=== PATIENT | female | born 1990 | race African-American/Black ===

== ENCOUNTER → 2021-06-17 | Outpatient (CLI) | payer OTHER ==
--- NOTE | 2021-06-17 16:09 | REP ---
INDICATION: BPP DI DI TWINS. COMPARISON: None. TECHNIQUE: Real-time sonographic evaluation of gravid uterus performed. FINDINGS: There is a living intrauterine diamniotic dichorionic twin gestation. Estimated gestational age is reportedly 27 weeks 2 days EDC 09/14/2021. Cervix is closed and measures 3.0 cm in length. Fetus a: position transverse on the left. Placenta anterior and grade 1 with no previa. heart rate 134 beats per minute. Amniotic fluid within normal limits, largest pocket of fluid 3.5 cm. Biophysical profile score 8/8. SD ratio umbilical artery 2.8, normal 2.15-4.46. RI 0.65, normal 0.56-0.79. Fetus B: position transverse on the right. Placenta posterior and grade 1 with no previa. heart rate 153 beats per minute. Amniotic fluid within normal limits. Largest pocket of fluid 3.6 cm. Biophysical profile score 8/8. SD ratio umbilical artery 2.70, normal 2.15-4.46. RI 0.63, normal 0.56-0.79. IMPRESSION: Live intrauterine twin gestation. Biophysical profile score for each fetus is 8/8. <Electronically signed by Mk Swain > 06/17/21 [id number]
== END ==
LOC: M RAD 14:30
PROVIDERS: ATTEND Obstetrics & Gynecology
DX: Z36.4 Encounter for antenatal screening for fetal growth retardation (principal); O30.042 Twin pregnancy, dichorionic/diamniotic, second trimester; Z3A.27 27 weeks gestation of pregnancy

== ENCOUNTER → 2021-07-25 | Outpatient (CLI) | payer OTHER ==
--- NOTE | 2021-07-25 14:47 | REP ---
INDICATION: BPP. COMPARISON: 06/17/2021. TECHNIQUE: Real-time sonographic evaluation of the gravid uterus performed. FINDINGS: There is a living intrauterine twin gestation, diamniotic dichorionic. Estimated gestational age is32 weeks 5 days, EDC 09/14/2021. Closed cervical length is measured at 4.3 cm. Fetus a: Presentation: Cephalic, left Placenta anterior, grade 1, without evidence of placenta previa. heart rate is recorded at 138 beats per minute. Amniotic fluid is subjectively normal. Largest pocket of fluid 4.4 cm. Biophysical profile score 8/8. SD ratio umbilical artery 2.60, normal 1.81-3.80. RI 0.62, normal 0.49-0.74. Fetus b: Presentation: Transverse, head maternal right Placenta posterior, grade 1, without evidence of placenta previa. heart rate is recorded at 142 beats per minute. Amniotic fluid is subjectively normal. Largest pocket of fluid 3.7 cm. Biophysical profile score 8/8. SD ratio umbilical artery 3.33, normal 1.81-3.80. RI 0.70, normal 0.49-0.74. IMPRESSION: Viable intrauterine twin gestation as above. <Electronically signed by Mk Swain > 07/25/21 [id number]
== END ==
LOC: M WHC 12:45
PROVIDERS: ATTEND Registered Nurse
DX: O30.043 Twin pregnancy, dichorionic/diamniotic, third trimester (principal); Z3A.32 32 weeks gestation of pregnancy

== ENCOUNTER → 2021-07-29 | Outpatient (CLI) | payer OTHER ==
--- NOTE | 2021-07-29 14:03 | REP ---
INDICATION: BPP, DI/DI TWINS COMPARISON: 07/25/2021 TECHNIQUE: Transabdominal obstetrical ultrasound with color Doppler evaluation. FINDINGS: Examination demonstrates dichorionic diamniotic twin live intrauterine . Selected gestational age: 33 weeks 2 days with estimated date of delivery 09/14/2021. Cervix measures 3.3 cm in length and appears closed. TWIN A: Cephalic presentation towards left side of the uterus. heart rate equals 126 beats per minute. Placenta noted anterior and grade 1. Amniotic fluid volume deepest pocket: 3.4 cm Biophysical profile score: 8/8 Umbilical artery SD ratio: 3.16 TWIN B: Transverse presentation towards right side of the uterus. heart rate equals 144 beats per minute. Placenta noted posteriorly and grade 1. Amniotic fluid volume deepest pocket: 3.4 cm Biophysical profile score: 8/8 Umbilical artery SD ratio: 3.03 IMPRESSION: Twin gestation demonstrating normal biophysical profile scores. <Electronically signed by Alvarez Manley > 07/29/21 [id number]
== END ==
LOC: M WHC 08:34
PROVIDERS: ATTEND Obstetrics & Gynecology
DX: O30.043 Twin pregnancy, dichorionic/diamniotic, third trimester (principal); Z3A.33 33 weeks gestation of pregnancy

== ENCOUNTER → 2021-07-31 | Outpatient (CLI) | payer OTHER ==
--- NOTE | 2021-08-01 08:31 | REP ---
INDICATION: DI DI TWINS. COMPARISON: 07/29/2021. TECHNIQUE: Real-time sonographic evaluation of the gravid uterus performed. FINDINGS: Estimated gestational age is33 weeks 4 days, EDC 09/14/2021. Fetus a: Presentation: Cephalic, left Placenta posterior, fundal, grade 2, without evidence of placenta previa. heart rate is recorded at 153 beats per minute. Amniotic fluid is subjectively normal. Largest pocket of fluid surrounding fetus a 3.3 cm Biophysical profile score 8/8. SD ratio umbilical artery 3.55, normal 1.75-3.72. RI 0.72, normal 0.47-0.73. Fetus B: Presentation: Cephalic, right Placenta anterior, grade 2, without evidence of placenta previa. heart rate is recorded at 137 beats per minute. Amniotic fluid is subjectively normal. Largest pocket of fluid surrounding fetus B 3.6 cm Biophysical profile score 8/8. SD ratio umbilical artery 3.55, normal 1.75-3.72. RI 0.72, normal 0.47-0.73. IMPRESSION: Viable twin intrauterine gestation as above. <Electronically signed by Mk Swain > 08/01/21 [id number]
== END ==
LOC: M RAD 13:43
PROVIDERS: ATTEND Obstetrics & Gynecology
DX: O30.043 Twin pregnancy, dichorionic/diamniotic, third trimester (principal); Z3A.33 33 weeks gestation of pregnancy

== ENCOUNTER → 2021-08-05 | Outpatient (CLI) | payer OTHER ==
--- NOTE | 2021-08-05 13:07 | REP ---
INDICATION: 33+ WKS DI DI TWINS BPP; 33+ WKS DI TWINS COMPARISON: 07/31/2021 TECHNIQUE: Transabdominal obstetrical ultrasound with color Doppler evaluation. FINDINGS: Examination demonstrates advanced dichorionic diamniotic twin live intrauterine . Selected gestational age: 34 weeks 2 days with estimated date of delivery 09/14/2021. Cervix measures 3.9 cm in length and appears closed. TWIN A: Breech presentation towards left side of the uterus. heart rate equals 131 beats per minute. Placenta noted posterior/fundal and grade 2. Amniotic fluid volume deepest pocket: 5.3 cm Biophysical profile score: 8/8 Umbilical artery SD ratio: 2.94 TWIN B: Oblique towards right side of the uterus. heart rate equals 141 beats per minute. Placenta noted anteriorly and grade 2. Amniotic fluid volume deepest pocket: 6.1 cm Biophysical profile score: 8/8 Umbilical artery SD ratio: 3.82 (1.72-3.65) IMPRESSION: 1. Twin gestation demonstrating normal biophysical profile scores and amniotic fluid volumes. 2. Twin B umbilical artery SD ratio mildly elevated. <Electronically signed by Alvarez Manley > 08/05/21 [id number]
== END ==
LOC: M RAD 11:47
PROVIDERS: ATTEND Obstetrics & Gynecology
DX: O30.043 Twin pregnancy, dichorionic/diamniotic, third trimester (principal); Z3A.34 34 weeks gestation of pregnancy

== ENCOUNTER → 2021-08-07 | Outpatient (CLI) | payer OTHER ==
--- NOTE | 2021-08-07 13:38 | REP ---
INDICATION: EVAL RONDA; EVAL MCA; PREF 33+ WKS DI BPP COMPARISON: 08/05/2021 TECHNIQUE: Transabdominal obstetrical ultrasound with color Doppler evaluation. FINDINGS: Examination demonstrates advanced dichorionic diamniotic twin live intrauterine . Selected gestational age: 34 weeks 4 days with estimated date of delivery 09/14/2021. Cervix measures 3.4 cm in length and appears closed. TWIN A: Breech presentation towards left side of the uterus. heart rate equals 153 beats per minute. Placenta noted anteriorly and grade 1. Amniotic fluid volume deepest pocket: 4.0 cm Biophysical profile score: 8/8 Umbilical artery SD ratio: 4.51 (1.70-3.63) Middle cerebral artery SD ratio: 2.29 (RI 0.56). TWIN B: Cephalic presentation towards right side of the uterus. heart rate equals 125 beats per minute. Placenta noted right lateral and grade 1. Amniotic fluid volume deepest pocket: 2.9 cm Biophysical profile score: 8/8 Umbilical artery SD ratio: 4.81 (1.70-3.63) Middle cerebral artery SD ratio: 3.76 (RI 0.73). IMPRESSION: Both twins demonstrate normal biophysical profile score. Umbilical artery SD ratios are mildly elevated. <Electronically signed by Alvarez Manley > 08/07/21 [id number]
== END ==
LOC: M RAD 11:58
PROVIDERS: ATTEND Obstetrics & Gynecology
DX: O30.043 Twin pregnancy, dichorionic/diamniotic, third trimester (principal); Z3A.34 34 weeks gestation of pregnancy

== ENCOUNTER 2021-08-09 08:12 | Outpatient (CLI) | payer OTHER ==
[~2021-08-09] VITALS: Ht 160 cm; Wt 73.3 kg
[2021-08-09] MEDS ORDERED: CALC500C16 PO (08:42)
[2021-08-09] MEDS ORDERED: NOXI1TAB PO (08:42)
[2021-08-09] MEDS ORDERED: PRENTAB9 PO (08:42)
[2021-08-09] MEDS ORDERED: FOLI400T13 PO (08:42)
[2021-08-09] MEDS ORDERED: URSO300C3 PO (08:46)
[2021-08-09] MEDS ORDERED: VITAD400CA PO (08:47)
[2021-08-09 08:55] VITALS: BP 120/68
[2021-08-09] MEDS ORDERED: HOME MED LIST COMPLETE! XX SCH (08:55)
[2021-08-09 09:29] VITALS: BP 127/70
== END 2021-08-09 09:37 | disposition home or self-care (01) ==
LOC: M LDO 08:12
PROVIDERS: ATTEND Obstetrics & Gynecology
DX: O60.03 Preterm labor without delivery, third trimester (principal); O30.043 Twin pregnancy, dichorionic/diamniotic, third trimester; Z3A.34 34 weeks gestation of pregnancy
CPT/HCPCS: 59025; G0378; G0463

== ENCOUNTER → 2021-08-12 | Outpatient (CLI) | payer OTHER ==
[~2021-08-12] MED LIST: CALC500C16 PO; FOLI400T13 PO; NOXI1TAB PO; PRENTAB9 PO; URSO300C3 PO; VITAD400CA PO
--- NOTE | 2021-08-12 12:57 | REP ---
INDICATION: 34+ WKS DI DI TWINS W/ GROWTH RESTRICTION BPP COMPARISON: 08/07/2021 TECHNIQUE: Transabdominal obstetrical ultrasound with color Doppler evaluation. FINDINGS: Examination demonstrates dichorionic diamniotic twin live intrauterine . Selected gestational age: 35 weeks 2 days with estimated date of delivery 09/14/2021. Cervix measures 3.6 cm in length and appears closed. TWIN A: Breech presentation towards left side of the uterus. heart rate equals 130 beats per minute. Placenta noted anterior and grade 2. Amniotic fluid volume deepest pocket: 1.9 cm Biophysical profile score: 8/8 Umbilical artery SD ratio: 3.95 (1.67-3.57) MCA SD ratio: 2.36 TWIN B: Cephalic presentation towards right side of the uterus. heart rate equals 143 beats per minute. Placenta noted right lateral and grade 2. Amniotic fluid volume deepest pocket: 2.9 cm Biophysical profile score: 8/8 Umbilical artery SD ratio: 3.47 MCA SD ratio: 3.66 IMPRESSION: Twin gestation demonstrating normal biophysical profile scores. Remainder findings as above. <Electronically signed by Alvarez Manley > 08/12/21 [id number]
== END ==
LOC: M RAD 11:55
PROVIDERS: ATTEND Obstetrics & Gynecology
DX: O30.043 Twin pregnancy, dichorionic/diamniotic, third trimester (principal); Z3A.35 35 weeks gestation of pregnancy

== ENCOUNTER 2021-08-14 12:44 | Inpatient (IN) | payer OTHER ==
[~2021-08-14] VITALS: Ht 160 cm; Wt 72.5 kg
[2021-08-14] VITALS (17 sets, daily range): BP systolic 122–145; BP diastolic 68–85
[~2021-08-14 12:44] MED LIST changes: -IBUP80TA PO; -TRAM50TA2 PO
[2021-08-14] MEDS ORDERED: OXYTOCIN DRIP 30 UNITS in IV 1 EA IV PRN ×4 (13:15)
[2021-08-14] MEDS ORDERED: ceFAZolin SOD 2 GM in IV 1 EA IV ONE (13:15)
[2021-08-14] MEDS ORDERED: BICITRA 30ML SOLN UDC PO ONE (13:15)
[2021-08-14] MEDS: LR 1,000 ML IV SCH ×2 (13:27→14:54)
[2021-08-14] MEDS ORDERED: HOME MED LIST COMPLETE! XX SCH (13:40)
[2021-08-14 13:46] LABS: HEMATOCRIT 31.8 % (36.0-47.0); HEMOGLOBIN 9.9 g/dl (12.0-15.5); MEAN CORPUSCULAR HEMOGLOBIN 26.1 pg (27.0-33.0); MEAN CORPUSCULAR HGB CONC 31.1 g/dl (32.0-36.5); MEAN CORPUSCULAR VOLUME 83.9 fl (80.0-96.0); PLATELET COUNT, AUTOMATED 296 10^3/uL (150-450); RED BLOOD COUNT 3.79 10^6/uL (4.00-5.40); WHITE BLOOD COUNT 6.9 10^3/uL (4.0-10.0)
--- NOTE | 2021-08-14 16:15 | HPEPDOC ---
Obstetrical History & Physical General Date of Admission History of Present Illness 31yo with radha twins at 35+4, known growth restriction and as of today absent end diastolic flow in Twin A. Denies vaginal bleeding, loss of fluid, egular contractions. Endorses positive movement. Care Care: Good Care Dating Final EDC: Sep 14, 2021 Final EDC by: LMP 1st Trimester Date: Jan 28, 2021 Antepartum Course Height (inches): 64 Pre- weight (lbs.): 138 Admission Weight (lbs.): 160 Change in Weight (lbs.): 22 Past Medical History Past Obstetrical History : Past Obstetrical History: Multigravida (2016 39wk 6# F, 2020 6wk SAB) Past Medical History Medical History denies Surgical History: Tooth extraction Family History Significant Family History: No pertinent family hx Social History Marital Status: Family situation: Spouse/partner home Psychosocial History: No pertinent psych hx * Smoker: non-smoker Alcohol: Denies Drugs: denies Abuse Violence Screening Have you been hit/kicked/slapp: No Have you been sexually assault: No Imunizations Tdap status: current Influenza Status: needs Allergies Coded Allergies: acetaminophen (Verified Allergy, Intermediate, 08/09/21) rash bacitracin (Verified Allergy, Intermediate, 08/09/21) rash doxycycline (Verified Allergy, Intermediate, 08/09/21) rash neomycin (Verified Allergy, Intermediate, 08/09/21) rash oxycodone (Verified Allergy, Intermediate, 08/09/21) rash polymyxin B (Verified Allergy, Intermediate, 08/09/21) rash Medications Scheduled Calcium Carbonate (Calcium) 500 Mg Tab.chew, 1 TAB PO DAILY Folic Acid (Folic Acid) 0.4 Mg Tablet, 1 TAB PO DAILY No.137/Iron/Folic Acd ( Vitamin Tablet) 1 Each Tablet, 1 TAB PO DAILY Ursodiol (Ursodiol) 300 Mg Capsule, 300 MG PO DAILY Vitamin D (Vitamin D3) 10 Mcg Tablet, 400 MCG PO DAILY Physical Examination Physical Examination GENERAL: Alert and oriented times three. ABDOMEN: Gravid and non-tender to touch. FETUS: category I tracing. fetus A breech, absent end diastolic flow per radiology doppler today 23DEC, efw 2147g 16% as of 15DEC; twin B cephalic, FGR, efw 2000g 7% as of 15DEC, elevated S/D ratio. HEART RATE: Regular rate LUNGS: nonlabored breathing EXTREMITIES: No edema. Laboratory Data Urine Culture: No Growth Pertinent Laboratoy Data Blood Type: B+ RBC Antibody Screen: Negative HIV: Negative Hepatitis B: Negative Rapid Plasma Reagin: Nonreactive Rubella: Immune Varicella: Immune Chlamydia/Gonorrhea: Negative Group B Streptococcus: Negative Glucose Tolerance Test: 140 Anatomy Ultrasound Placenta Location: Twin B (right lateral) Normal Anatomy: Yes Placenta Previa: No Steroid Therapy Steroid Therapy: No Assessment Heart Rate (FHR): 125 Variability: Moderate Accelerations: Positive Decelerations: None Heart Patterns: Tachycardia Tocometer Contractions: Yes Frequency: irregular Multi-drug resistant Organism: No history of MDRO Assessment/Plan Assessment Jyoti Ruiz is a 31-year-old at 35+4 weeks with Radha twins. Was having doppler studies today and Twin A was found to have absent end diastolic flow. Twin A on a 15DEC growth scan was 2147g 16%. Twin B on 15DEC growth scan was 2000g 7%. Currently category I tracing. Discussed with patient that absent end diastolic flow is an indication for delivery after 34 weeks gestation per ACOG. All questions answered and she indicated understanding; she was previously scheduled for delivery in early August; will move to OR as soon as possible for delivery. Plan Admit and orient. Payroll Manager and consent. Diet: . Group B Streptococcus (GBS) [negative]. Labs and intravenous (IV) per unit protocol. Counseled on Pitocin and induction of labor (IOL). Lactated Ringers (LR): Bolus mL, then at mL/hr. Anticipate [normal spontaneous delivery ()]. C-S as appropriate. Labor and Delivery Counseling Risk of delivery discussed as documented on consent including but not limited to infection, bleeding, damage to nearby organs, injury to baby, anesthesia complication, hysterectomy, . All questions answered and she indicated understanding. She also requested steroid injection to scar to prevent keloid; this is reasonable likely will use triamcinolone. ABEL GODOY DO Aug 14, 2021 13:22
[2021-08-14] MEDS ORDERED: OXYTOCIN INJ 10 UNITS/ML VIAL (J2590) As Ordered ONE (19:55)
[2021-08-14] MEDS ORDERED: ONDANSETRON 4MG/2ML VIAL As Ordered ONE (19:55)
[2021-08-14] MEDS ORDERED: dexameTHASONE 4 MG/ML 1ML VIAL (J1100 PER 1MG) As Ordered ONE (19:55)
[2021-08-14] MEDS ORDERED: fentaNYL 100 MCG/2 ML INJECTION (J3010) As Ordered ONE (19:56)
[2021-08-14] MEDS ORDERED: MORPHINE PRES-FREE INJ 10 MG/10 ML VIAL (J2274) As Ordered ONE (19:57)
[2021-08-14] MEDS ORDERED: METOCLOPRAMIDE INJ 10MG/2ML VIAL (J2765 PER 1) IV PRN (20:19)
[2021-08-14] MEDS ORDERED: ONDANSETRON 4MG/2ML VIAL IV PRN ×3 (20:19→22:00)
[2021-08-14] MEDS ORDERED: NALBUPHINE HCL 10 MG/ML AMP (J2300) IV PRN ×2 (20:19→22:00)
[2021-08-14] MEDS ORDERED: diphenhydrAMINE 50MG/ML VIAL (J1200) IV PRN (20:19)
[2021-08-14] MEDS ORDERED: NALOXONE INJ 0.4MG/1ML VIAL (J2310 PER 1MG) IV PRN ×2 (20:19)
[2021-08-14] MEDS ORDERED: PHENYLephrine 500MCG 5ML (100MCG/ML) SYRINGE As Ordered ONE (20:54)
[2021-08-14] MEDS ORDERED: ePHEDrine SULFATE 25 MG/5 ML(5MG/ML) SYRINGE As Ordered ONE (20:54)
[2021-08-14] MEDS ORDERED: RHOGAM 300 MCG (1500 IU) INJ (J2790) IM SCH (21:30)
[2021-08-14] MEDS ORDERED: SIMETHICONE 80MG CHEW TAB PO PRN (21:30)
[2021-08-14] MEDS ORDERED: MEASLES,MUMPS,RUBELLA VACCINE INJ (MMR-II) (90707) SC SCH (21:30)
[2021-08-14] MEDS ORDERED: PROMETHAZINE 25 MG TAB PO PRN (21:30)
[2021-08-14] MEDS ORDERED: traMADol 50 MG TAB PO PRN ×2 (21:30)
[2021-08-14] MEDS ORDERED: MORPHINE 2 MG/ML 1ML VIAL (J2270) IV PRN (21:30)
--- NOTE | 2021-08-14 21:53 | ROOPDOC ---
[facility] Report Of Operation Report of Operation DATE OF PROCEDURE: 08/14/21 PREPROCEDURE DIAGNOSES: -radha twin gestation - 35 weeks gestation - absent end diastolic flow Twin A POSTPROCEDURE DIAGNOSES: status post primary low transverse delivery PROCEDURE PERFORMED: primary low transverse delivery SURGEON: Derrek Palacios DO ELECTORAL OFFICER: Afsaneh Shaffer MD; whose assistance with visualization, retraction and delivery of both fetuses was essential to completion of the case ANESTHESIA: spinal ESTIMATED BLOOD LOSS: Approximately 700 mL. COMPLICATIONS: none. REMARKS: none. FINDINGS: -twin A male, time 2027 [id number], apgars 8/9, weight 1916g -twin B female, time 2028 [id number], apgars 8/9 weight 1994g -normal appearing uterus, tubes and ovaries SPECIMENS REMOVED: placentas PROCEDURE NOTE: see below. DESCRIPTION OF PROCEDURE: After obtaining informed consent the patient was brought to the operating suite. She then received her spinal anesthesia. As I was gowning the patient stated she felt like she was going to pass out and then she apparently lost consciousness. Anesthesia was tending to her and with their approval I decided to emergently deliver the twins. A transverse incision was made with the scalpel and this was carried down to the fascia which was then incised with the scalpel. This was extended bluntly and dissected from the rectus muscles bluntly. The rectus muscles were and the peritoneum entered bluntly. A bladder blade was placed. A low transverse incision was made with the scalpel on the uterus which was then entered bluntly. Clear fluid was noted on rupture of membranes. The sacrum was delivered and the left and then right legs were delivered by flexing the hips. The left then right arms were delivered by sweeping them across the chest. Maxillary pressure maintained cephalic flexion and the head delivered without issue. The was suctioned and stimulated while the cord was clamped and cut. The was then handed to awaiting pediatrics team. Cord gases were obtained. The uterus was then explored, Twin B amniotic sac located and ruptured with clear fluid. Both feet were grasped and delivered. The body was delivered to the level of the shoulder blades then the left and then right arms were delivered by sweeping across the chest. Again maxillary pressure maintained cephalic flexion and the head delivered without issue. The was suctioned and stimulated while the cord was clamped and cut. The was then handed to awaiting pediatrics team. Cord gases were obtained. During all of this Jyoti did regain consciousness and was awake and alert; anesthesia appeared to be adequate for pain control. Both placentas delivered spontaneously and intact. The uterus was exteriorized and the interior wiped with a laparotomy sponge. The hysterotomy was closed with running, locking 0-vicryl. A second imbricating layer of 0-vicryl was placed. The posterior cul-de-sac was then irrigated. The uterus was returned to the abdomen. The hysterotomy was again inspected with hemostasis noted. The peritone um was closed with running 3-0 vicryl. The fascia was closed with running 0- vicryl. The subcutaneous layer was irrigated then closed with 3-0 vicryl. The skin was closed with 4-0 monocryl. An Optifoam dressing was placed. All counts were correct. 1000 micrograms of cytotec were placed rectally for hemorrhage prophylaxis. Uterus was firm at U-1. Jyoti Carrizales was in good condition and being taken to the recovery room by anesthesia when I left the room. DO WALT Engel BRADLEY J. DO Aug 14, 2021 21:42
[2021-08-14] MEDS ORDERED: OXYTOCIN 30 UNITS IN 0.9% NaCl 500ML IV BAG (J2590) As Ordered ONE (21:57)
[2021-08-14] MEDS ORDERED: LR 1,000 ML IV SCH (22:00)
[2021-08-14] MEDS ORDERED: KETOROLAC 30 MG/ML 1ML VIAL IV PRN (22:00)
[2021-08-14] MEDS ORDERED: oxyCODONE 5MG TAB PO PRN (22:00)
[2021-08-14] MEDS ORDERED: fentaNYL 100 MCG/2 ML INJECTION (J3010) IV PRN (22:00)
[2021-08-15] VITALS (10 sets, daily range): BP systolic 101–141; BP diastolic 62–75
[2021-08-15] MEDS: ACETAMINOPHEN 500 MG TAB PO SCH ×4 (00:07→17:37)
[2021-08-15] MEDS: LR 1,000 ML IV SCH ×2 (03:20→10:42)
[2021-08-15] MEDS: KETOROLAC 30 MG/ML 1ML VIAL IV SCH ×3 (03:20→14:48)
--- NOTE | 2021-08-15 06:52 | IPNPDOC ---
Progress Note Date of Service: Aug 15, 2021 Day#: 1 Progress Note PREPROCEDURE DIAGNOSES: -radha twin gestation - 35 weeks gestation - absent end diastolic flow Twin A PROCEDURE PERFORMED: primary low transverse delivery -twin A male, time 2027 [id number], apgars 8/9, weight 1916g -twin B female, time 2028 [id number], apgars 8/9 weight 1994g SUBJECT: Jyoti Ruiz is a 31-year-old 3 now Para 1113 status post uncomplicated primary low transverse delivery at 35+4 weeks, doing well day # 1. She has been ambulating, just had her samson catheter removed and is about to order breakfast. Pumping without issue. Reports lochia is small. OBJECTIVE: VITAL SIGNS: Within normal limits, afebrile. Alert and oriented times three. Nonlabored breathing Heart rate: Regular rate Abdomen: Fundus firm at U-2. Soft, NTTP. Incision covered with Optifoam with no strikethrough. Negative calf tenderness bilaterally ASSESSMENT: As above doing well on day 1. Vitals within normal limits, afebrile, hemodynamically stable with no evidence of infection. PLAN: 1. Discharge to home likely tomorrow. 2. Tylenol, Motrin and Tramadol for pain 3. Encourage breast feeding and ambulation, incentive spirometer. 4. Undecided for contraception 5. Routine PP visit at 2 and 6 weeks in clinic. VS, I&O, 24H, Fishbone Vital Signs/I&O Vital Signs Date Time Temp Pulse Resp B/P (MAP) Pulse Ox O2 Delivery O2 Flow Rate FiO2 08/15/21 05:54 97.4 66 16 115/69 (84) 98 Room Air I&O- Last 24 Hours up to 6 AM 08/15/21 05:59 Intake Total 1559 ml Output Total 1100 ml Balance 459 ml Laboratory Data 24H LABS Laboratory Tests 2 08/14/21 13:26: Serology Scanned Report Hepatitis B Testing 08/14/21 13:29: Nucleated Red Blood Cells % (auto) 0.0, Syphilis Serology NONREACTIVE 08/14/21 13:33: Coronavirus (COVID-19)(PCR) NEGATIVE CBC/BMP Laboratory Tests 08/14/21 13:29 ABEL GODOY DO Aug 15, 2021 06:46
[2021-08-15 07:39] LABS: HEMATOCRIT 28.5 % (36.0-47.0); HEMOGLOBIN 8.9 g/dl (12.0-15.5); MEAN CORPUSCULAR HGB CONC 31.2 g/dl (32.0-36.5); MEAN CORPUSCULAR VOLUME 83.3 fl (80.0-96.0); PLATELET COUNT, AUTOMATED 269 10^3/uL (150-450); RED BLOOD COUNT 3.42 10^6/uL (4.00-5.40); WHITE BLOOD COUNT 12.1 10^3/uL (4.0-10.0)
[2021-08-15] MEDS: PRENATAL VITAMINS CHEWABLE TABLET PO SCH (08:32)
[2021-08-15] MEDS ORDERED: PRENATAL VITAMINS CHEWABLE TABLET PO SCH (09:00)
[2021-08-15] MEDS ORDERED: LR 1,000 ML IV ONE (10:45)
[2021-08-15] MEDS ORDERED: LR 500 ML IV ONE (11:00)
[2021-08-15] MEDS: IBUPROFEN 800 MG TAB PO SCH (22:32)
[2021-08-16] MEDS: ACETAMINOPHEN 500 MG TAB PO SCH ×2 (00:27→06:38)
[2021-08-16 02:00] VITALS: BP 118/67
[2021-08-16 06:00] VITALS: BP 130/62
[2021-08-16] MEDS: IBUPROFEN 800 MG TAB PO SCH (06:38)
[2021-08-16] MEDS ORDERED: TRAM50TA2 PO (08:31)
[2021-08-16] MEDS ORDERED: IBUP80TA PO (08:31)
[2021-08-16] MEDS: PRENATAL VITAMINS CHEWABLE TABLET PO SCH (09:22)
--- NOTE | 2021-08-16 09:38 | DSES ---
DISCHARGE SUMMARY DATE OF ADMISSION: 08/14/2021 DATE OF DISCHARGE: 08/16/2021 This lady is a 31-year-old, 3, now para 3, admitted with a history of di/di twins at 35 and 4 weeks of gestation, had a primary section because of IUGR and one of the twins had reverse diastolic flow. She had a primary section. Twin A was male, weighing 1916 gm, Apgars of 8 and 9 at 1 and 5 minutes respectively. Twin B was female, weighing 1994 gm, Apgars of 8 and 9 at 1 and 5 minutes respectively. On her second day, we discussed phlebitis, cystitis, mastitis, endometritis and cellulitis, diet, exercise, pain management, perineal, breast and wound care. This morning, her blood pressure is 130/62. Respirations are 20, pulse 68. Temperature is 97.4. Her admitting hemoglobin was 9.9, hematocrit 31.8 and platelets were 296. Discharge hemoglobin 8.9, hematocrit 28.5 and platelets are 269. The rest of the examination unremarkable, normocephalic, atraumatic. Neck: Full range of motion. Pupils: Equal and reactive to light. Distal pulses are symmetric. No evidence of DVT, PE or superficial phlebitis. Chest is clear, bilateral bases. No wheezes or rhonchi. No CVA tenderness. Abdomen is soft. Four quadrant bowel sounds are noted. Uterus 2 below. Lochia is moderate. Incision is clean and dry. No rashes, lesions or pruritus. No arthralgia, myalgia, no complaint of joint pain, no complaint of cough, wheeze, shortness of breath or dyspnea on exertion. No nausea, vomiting, diarrhea, constipation. In summary, we have a patient delivered by primary section, di/di twins. Babies will be in the NICU for at least a week. The patient was discharged home with instructions and given script for pain meds. All questions were answered, 20 minute discussion. Ernul OB
== END 2021-08-16 10:00 | disposition home or self-care (01) | DRG 773 ==
LOC: M LDO 12:44 → M LDI 13:18 → M OBS 23:36
PROVIDERS: ADMIT Obstetrics & Gynecology; ATTEND Obstetrics & Gynecology
PROC: 10D00Z1 Extraction of Products of Conception, Low, Open Approach (ICD-10-PCS; principal; 2021-08-14 20:18)
DX: O36.5931 Maternal care for other known or suspected poor fetal growth, third trimester, fetus 1 (principal); Z3A.35 35 weeks gestation of pregnancy; Z37.2 Twins, both liveborn; O30.043 Twin pregnancy, dichorionic/diamniotic, third trimester; O32.1XX1 Maternal care for breech presentation, fetus 1

== ENCOUNTER → 2021-08-14 | Outpatient (CLI) | payer OTHER ==
[~2021-08-14] MED LIST changes: +IBUP80TA PO; +TRAM50TA2 PO
--- NOTE | 2021-08-14 13:07 | REP ---
INDICATION: 34+ WKS W/ DI DI TWINS GROWTH RESTR BPP. COMPARISON: 08/12/2021. TECHNIQUE: Real-time sonographic evaluation of the gravid uterus performed. FINDINGS: There is a living intrauterine twin gestation, diamniotic dichorionic. Estimated gestational age isreportedly 35 weeks 4 days, EDC 09/14/2021. Closed cervical length is measured at 4.2 cm. Fetus a: Presentation: Breech, left. Placenta anterior, grade 2, without evidence of placenta previa. heart rate is recorded at 131 beats per minute. Amniotic fluid is subjectively normal. Largest pocket of fluid 2.7 cm. Biophysical profile score 8/8. SD ratio umbilical artery 20.00, normal 1.66-3.54. RI 0.95, normal 0.45-0.71. SD ratio middle cerebral artery 2.77, RI 0.64, peak systolic velocity 66.8 centimeters/second, end-diastolic velocity 24.1 centimeter/second. There is essentially no diastolic flow in the umbilical artery of fetus A. Fetus b: Presentation: Cephalic, right Placenta right lateral, grade 2, without evidence of placenta previa. heart rate is recorded at 147 beats per minute. Amniotic fluid is subjectively normal. Largest pocket of fluid 4.4 cm. Biophysical profile score 8/8. SD ratio umbilical artery 6.38, normal 1.66-3.54. RI 0.84, normal 0.45-0.71. SD ratio middle cerebral artery 3.36, RI 0.70, peak systolic velocity 32.6 centimeter/second, end-diastolic velocity 9.7 centimeter/second. IMPRESSION: Biophysical profile score 8/8 for each fetus. However, there is an elevated SD ratio for each fetus, especially for fetus a at 20.00. There is essentially no diastolic flow in the umbilical artery of fetus A. the patient was sent to labor and delivery. <Electronically signed by Mk Swain > 08/14/21 [id number]
== END ==
LOC: M RAD 11:47
PROVIDERS: ATTEND Obstetrics & Gynecology
DX: O30.043 Twin pregnancy, dichorionic/diamniotic, third trimester (principal); Z3A.35 35 weeks gestation of pregnancy